=== PATIENT | female | born 1990 | race Two or more races ===

== ENCOUNTER 2025-03-03 11:44 | Inpatient (IN) | payer OTHER ==
[~2025-03-03] VITALS: Ht 165.1 cm; Wt 65.3 kg
[2025-03-19 14:50] VITALS: BP 137/80
[2025-03-19] MEDS ORDERED: PRENATABS RX T1 EACH PO (15:25)
[2025-03-19] MEDS ORDERED: INTEGRA PLUS C1 EACH PO (15:26)
[2025-03-19] MEDS ORDERED: MISOPROSTOL 25 MCG TABLET ONE (15:45)
[2025-03-19] MEDS ORDERED: MISOPROSTOL 25 MCG TABLET VAG ONE (16:45)
[2025-03-19] MEDS ORDERED: RINGERS SOLUTION,LACTATED 1,000 ML IV SCH (16:45)
[2025-03-19 18:27] VITALS: BP 144/84
[2025-03-19] MEDS ORDERED: FAMOTIDINE/PF 20 MG/2 ML VIAL IV PRN (22:15)
[2025-03-19] MEDS ORDERED: MORPHINE SULFATE 4 MG/ML CARTRIDGE IV PRN (22:15)
[2025-03-19 23:07] VITALS: BP 150/69
[2025-03-20] VITALS (23 sets, daily range): BP systolic 134–168; BP diastolic 60–97
[2025-03-20] MEDS ORDERED: LIDOCAINE HCL 1% 10ML VIAL ONE (05:23)
[2025-03-20] MEDS ORDERED: OXYTOCIN 20 UNITS/1000ML RL PIGGYBAG IV ONE (05:23)
[2025-03-20] MEDS ORDERED: ERYTHROMYCIN BASE OPHT 1GM EACH TUBE OP ONE ×2 (05:23→08:30)
[2025-03-20] MEDS ORDERED: CHLORHEXIDINE GLUCONATE 120 ML BOTTLE TOP ONE ×2 (05:23→07:20)
[2025-03-20] MEDS ORDERED: MAGNESIUM SULFATE IN WATER 4 GM/100 ML PIGGYBACK IV ONE (06:43)
[2025-03-20] MEDS ORDERED: hydrALAZINE HCL 20 MG VIAL IV ONE ×2 (07:25→11:45)
[2025-03-20] MEDS ORDERED: hydrALAZINE HCL 20 MG VIAL ONE (07:33)
[2025-03-20] MEDS ORDERED: MAGNESIUM SULFATE IN WATER 0.04 GM/ML IV.SOLN IV ONE (07:55)
[2025-03-20] MEDS ORDERED: MAGNESIUM SULFATE IN WATER 100 ML IV SCH (08:30)
[2025-03-20] MEDS ORDERED: LIDOCAINE HCL 1% 10ML VIAL IJ ONE (08:30)
[2025-03-20] MEDS ORDERED: MAGNESIUM SULFATE IN WATER 500 ML IV SCH (08:30)
[2025-03-20] MEDS ORDERED: OXYTOCIN 1,000 ML IV SCH ×2 (08:30→14:15)
[2025-03-20] MEDS ORDERED: IBUprofen 400 MG TABLET PO PRN (14:15)
[2025-03-20] MEDS ORDERED: CHLORHEXIDINE GLUCONATE 120 ML BOTTLE TOP SCH (14:15)
[2025-03-20] MEDS ORDERED: LABETALOL HCL 200 MG TABLET PO SCH (17:00)
[2025-03-20 18:57] LABS: BASO % 0.1 % (0.1-1.2); HEMATOCRIT 32.1 % (34.1-44.9); HEMOGLOBIN 11.3 g/dL (11.2-15.7); LYMPH # 1.49 (1.18-3.74); MEAN CORPUSCULAR HEMOGLOBIN 32.9 pg (25.6-32.2); MONO # 1.51 (0.24-0.82); MONO % 8.1 % (4.7-12.5); NEUT # 15.38 (1.56-6.13); NEUT % 82.9 % (34.0-71.1); PLATELET COUNT 287 K/uL (163-369); RED BLOOD COUNT 3.43 M/uL (3.93-5.22); RED CELL DISTRIBUTION WIDTH 13.7 % (11.6-14.4)
[2025-03-21] VITALS (7 sets, daily range): BP systolic 112–157; BP diastolic 63–89
[2025-03-21 07:39] LABS: BASO % 0.3 % (0.1-1.2); EOS # 0.04 (0.04-0.54); EOS % 0.3 % (0.7-7.0); HEMATOCRIT 29.7 % (34.1-44.9); HEMOGLOBIN 10.3 g/dL (11.2-15.7); LYMPH # 1.67 (1.18-3.74); LYMPH % 12.1 % (19.3-53.1); MEAN CORPUSCULAR HEMOGLOBIN 32.7 pg (25.6-32.2); MONO # 0.98 (0.24-0.82); MONO % 7.1 % (4.7-12.5); NEUT # 10.98 (1.56-6.13); NEUT % 79.4 % (34.0-71.1); PLATELET COUNT 252 K/uL (163-369); RED BLOOD COUNT 3.15 M/uL (3.93-5.22); RED CELL DISTRIBUTION WIDTH 14.1 % (11.6-14.4)
[2025-03-21] MEDS ORDERED: IBUprofen 400 MG TABLET PO ONE (07:52)
[2025-03-21 08:00] LABS: ALBUMIN 2.4 gm/dL (3.4-5.0); BILIRUBIN TOTAL 0.75 mg/dL (0.3-1.2); CALCIUM 6.8 mg/dL (8.5-10.1); CREATININE SERUM 0.46 mg/dL (0.55-1.02); GFR 154.58; POTASSIUM 4.05 mEq/L (3.5-5.1); TOTAL PROTEIN 5.4 gm/dL (6.4-8.2)
[2025-03-21] MEDS ORDERED: NIFEDIPINE 30 MG TAB.SA.OSM PO SCH (12:20)
[2025-03-22 00:57] VITALS: BP 129/75
[2025-03-22 05:00] VITALS: BP 126/76
[2025-03-22 08:27] VITALS: BP 130/80
== END 2025-03-22 13:48 | disposition home or self-care (01) | DRG 807 ==
LOC: LDR 03-19 11:42 → OB/GYN 03-19 14:32 → LDR 03-19 14:32 → OB/GYN 03-21 12:56
PROVIDERS: Obstetrics & Gynecology; ADMIT Obstetrics & Gynecology; ATTEND Obstetrics & Gynecology Gynecology
PROC: 3E0P7VZ Introduction of Hormone into Female Reproductive, Via Natural or Artificial Opening (ICD-10-PCS; 2025-03-19)
PROC: 4A1HXCZ Monitoring of Products of Conception, Cardiac Rate, External Approach (ICD-10-PCS; 2025-03-19)
PROC: 10E0XZZ Delivery of Products of Conception, External Approach (ICD-10-PCS; principal; 2025-03-20)
PROC: 0KQM0ZZ Repair Perineum Muscle, Open Approach (ICD-10-PCS; 2025-03-20)
PROC: 3E033VJ Introduction of Other Hormone into Peripheral Vein, Percutaneous Approach (ICD-10-PCS; 2025-03-20)
DX: O70.1 Second degree perineal laceration during delivery (principal); Z37.0 Single live birth; O14.14 Severe pre-eclampsia complicating childbirth; Z3A.40 40 weeks gestation of pregnancy

== ENCOUNTER 2025-03-10 09:12 | Outpatient (CLI) | payer OTHER | END 2025-03-10 09:53 | disposition home or self-care (01) | LOC: NST 09:12 | PROVIDERS: ATTEND Obstetrics & Gynecology | DX: Z34.83 Encounter for supervision of other normal pregnancy, third trimester (principal) ==

== ENCOUNTER 2025-03-19 08:58 | Outpatient (CLI) | payer OTHER ==
[2025-03-19] MEDS ORDERED: PRENATABS RX T1 EACH PO (15:25)
[2025-03-19] MEDS ORDERED: INTEGRA PLUS C1 EACH PO (15:26)
== END 2025-03-19 09:46 | disposition home or self-care (01) ==
LOC: NST 08:58
PROVIDERS: ATTEND Obstetrics & Gynecology Maternal & Fetal Medicine
DX: Z34.83 Encounter for supervision of other normal pregnancy, third trimester (principal)